=== PATIENT | male | born 1950 | race Caucasian/White ===

== ENCOUNTER → 2016-12-03 | Outpatient (CLI) | payer OTHER, BC | LOC: HYPER 07:03 | DX: L89.154 Pressure ulcer of sacral region, stage 4 (principal); G35 Multiple sclerosis; I48.0 Paroxysmal atrial fibrillation; Z87.891 Personal history of nicotine dependence ==

== ENCOUNTER → 2017-02-10 | Outpatient (CLI) | payer OTHER, BC | LOC: HYPER 07:10 | DX: L89.154 Pressure ulcer of sacral region, stage 4 (principal); L89.222 Pressure ulcer of left hip, stage 2; L89.212 Pressure ulcer of right hip, stage 2; G35 Multiple sclerosis; I48.0 Paroxysmal atrial fibrillation; Z87.01 Personal history of pneumonia (recurrent); Z87.891 Personal history of nicotine dependence ==

== ENCOUNTER → 2017-03-17 | Outpatient (CLI) | payer OTHER, BC | LOC: HYPER 03-03 16:15 | DX: L89.154 Pressure ulcer of sacral region, stage 4 (principal); L89.212 Pressure ulcer of right hip, stage 2; G35 Multiple sclerosis; I48.0 Paroxysmal atrial fibrillation; K21.9 Gastro-esophageal reflux disease without esophagitis; Z87.891 Personal history of nicotine dependence ==

== ENCOUNTER → 2017-04-02 | Outpatient (CLI) | payer OTHER, BC | LOC: HYPER 07:18 | DX: L89.154 Pressure ulcer of sacral region, stage 4 (principal); L89.212 Pressure ulcer of right hip, stage 2; G35 Multiple sclerosis; I48.0 Paroxysmal atrial fibrillation; Z87.891 Personal history of nicotine dependence ==

== ENCOUNTER → 2017-04-28 | Outpatient (CLI) | payer OTHER, BC | LOC: HYPER 07:19 | DX: L89.154 Pressure ulcer of sacral region, stage 4 (principal); L89.212 Pressure ulcer of right hip, stage 2; I48.0 Paroxysmal atrial fibrillation; K21.9 Gastro-esophageal reflux disease without esophagitis; Z87.891 Personal history of nicotine dependence ==

== ENCOUNTER → 2017-08-27 | Outpatient (CLI) | payer OTHER, BC | LOC: HYPER 05-26 11:30 | DX: L89.154 Pressure ulcer of sacral region, stage 4 (principal); G35 Multiple sclerosis; Z87.01 Personal history of pneumonia (recurrent); I48.0 Paroxysmal atrial fibrillation; K21.9 Gastro-esophageal reflux disease without esophagitis; Z87.891 Personal history of nicotine dependence ==

== ENCOUNTER → 2018-02-11 | Outpatient (CLI) | payer OTHER, BC | LOC: HYPER 09-24 06:55 | DX: L89.154 Pressure ulcer of sacral region, stage 4 (principal); G35 Multiple sclerosis; K94.09 Other complications of colostomy; R21 Rash and other nonspecific skin eruption; Z48.817 Encounter for surgical aftercare following surgery on the skin and subcutaneous tissue; Z87.891 Personal history of nicotine dependence ==